=== PATIENT | female | born 1980 | race Caucasian/White ===

== ENCOUNTER 2017-05-18 18:03 | Emergency (ER) | payer BC ==
[~2017-05-18] VITALS: Ht 165.1 cm; Wt 96.7 kg
[~2017-05-18 18:03] MED LIST: IBUP-232 PO; PEXE20TA PO; ROBA750T PO
[2017-05-18] MEDS ORDERED: SODIUM CHLORIDE 0.9% FLUSH 10 ML FLUSH IVF PRN (18:15)
[2017-05-18] MEDS ORDERED: SODIUM CHLOR 0.9% 1000 ML INJ 1,000 ML IV ONE (18:15)
--- NOTE | 2017-05-18 18:20 | PD ---
HPI Chief Complaint: Cardiac Complaint Time Seen by Provider: 18:07 Travel History International Travel<30 days: No Contact w/Intl Traveler<30days: No History of Present Illness HPI This is a 37-year-old female who presents to the emergency department with chest tightness that started about 3 hours ago while she was working. 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 She says it continued for about 2 hours to the point where she decided to come to the emergency department. Her chest pain is mild, nonradiating, with no associated shortness of breath, nausea or diaphoresis. She says of note 5 days ago she started to take Wellbutrin which is a new medicine for her. She says she doesn't feel anxious. She denies any recent travel, she is not on OCPs, she has no history of diabetes, hypertension or hyperlipidemia. She does not smoke or take illicit drugs. Her father just had a heart attack and he is in his 60s. PFSH Past Medical History Blood Disorders: No Anxiety: Yes Past Surgical History Other Surgery: Yes (NASAL) Social History Alcohol Use: Yes Tobacco Use: No Substance Use: No Allergies-Medications (Allergen,Severity, Reaction): Coded Allergies: codeine (Unverified Allergy, Severe, 04/30/17) PT STATES SHE CAN TAKE CODEINE WITHOUT ANY PROBLEMS. penicillin G (Unverified Allergy, Severe, 04/30/17) PT STATES SHE CAN TAKE PENICILLIN WITHOUT ANY PROBLEMS. Reported Meds & Prescriptions Reported Meds & Active Scripts Active Robaxin (Methocarbamol) 750 Mg Tab 750 Mg PO Q6HR Ibuprofen 600 Mg Tab 600 Mg PO Q6H PRN Reported Pexeva (Paroxetine Mesylate) 20 Mg Tab 20 Mg PO DAILY Review of Systems Except as stated in HPI: all other systems reviewed are Neg Physical Exam Narrative GENERAL:Well appearing, no acute distress SKIN: Focused skin assessment warm and dry. HEAD: Atraumatic. Normocephalic. EYES: Pupils equal and round. No injection or drainage. ENT: Moist mucous membranes NECK: Trachea midline. CARDIOVASCULAR: Tachycardic. No murmur appreciated. RESPIRATORY: Clear to auscultation. Breath sounds equal bilaterally. GASTROINTESTINAL: Abdomen soft, non-tender, nondistended. MUSCULOSKELETAL: No obvious deformities. NEUROLOGICAL: Awake and alert. No obvious cranial nerve deficits. Moving all extremities. PSYCHIATRIC: Appropriate mood and affect; insight and judgment normal. Data Data Last Documented VS Vital Signs Date Time Temp Pulse Resp B/P (MAP) Pulse Ox O2 Delivery O2 Flow Rate FiO2 05/18/17 18:32 98.6 90 17 141/74 (96) 97 05/18/17 18:30 Room Air Orders Orders Electrocardiogram (05/18/17 18:12) Complete Blood Count With Diff (05/18/17 18:12) Comprehensive Metabolic Panel (05/18/17 18:12) D-Dimer (05/18/17 18:12) Troponin I (05/18/17 18:12) Chest, Single Ap (05/18/17 18:12) Ecg Monitoring (05/18/17 18:12) Iv Access Insert/Monitor (05/18/17 18:12) Oximetry (05/18/17 18:12) Oxygen Administration (05/18/17 18:12) Sodium Chloride 0.9% Flush (Ns Flush) (05/18/17 18:15) Sodium Chlor 0.9% 1000 Ml Inj (Ns 1000 M (05/18/17 18:15) Thyroid Stimulating Hormone (05/18/17 18:12) Ed Urine Pregnancytest Poc (05/18/17 18:12) MDM Medical Decision Making Medical Screen Exam Complete: Yes Emergency Medical Condition: Yes Interpretation(s) EKG: nsr, normal ST segments Differential Diagnosis Medication side effect, hyperthyroidism, pulmonary embolism, dehydration, arrhythmia Narrative Course This is a 37 year old female who presents to the emergency department with tachycardia and chest tightness. She says it works for her is anywhere from the 120s to 130s. She just started Wellbutrin earlier this week. I suspect this is the etiology of her symptoms. Given she's having chest pain I think it' s reasonable to check some blood work including a d-dimer as she is tachycardic here and is reporting chest discomfort. If this is all reassuring, patient can be discharged home and should be counseled to discontinue Wellbutrin. Maritza Aranda MD May 18, 2017 18:20
--- NOTE | 2017-05-18 18:27 | RADRPT ---
EXAM DATE/TIME: 05/18/2017 18:21 [facility] COMPARISON: No previous studies available for comparison. INDICATIONS : Chest pain. MEDICAL HISTORY : None. SURGICAL HISTORY : None. ENCOUNTER: Initial ACUITY: 1 day PAIN SCORE: 3/10 LOCATION: chest center FINDINGS: A single view of the chest demonstrates the lungs to be symmetrically aerated without evidence of mas s, infiltrate or effusion. The cardiomediastinal contours are unremarkable. Osseous structures are intact. CONCLUSION: No acute disease. Mahad Cornejo MD on May 18, 2017 at 18:25 Board Certified Radiologist. This report was verified electronically.
[2017-05-18 18:30] VITALS: O2SAT 95
[2017-05-18 18:32] VITALS: BP 141/74; PULSE 90; RESP 17; TEMP 98.6; O2SAT 97
[2017-05-18] MEDS ORDERED: HYDR-3583 PO (18:40)
[2017-05-18] MEDS ORDERED: BUPR150XL PO (18:40)
[2017-05-18 19:10] VITALS: BP 140/72; PULSE 95; RESP 16; O2SAT 100
[2017-05-18 19:19] LABS: AUTOMATED NEUTROPHIL # 3.3 TH/MM3 (1.8-7.7); BASOPHIL # 0.1 TH/MM3 (0-0.2); BASOPHIL % 1.2 % (0.0-2.0); EOSINOPHIL # 0.1 TH/MM3 (0-0.4); EOSINOPHIL % 2.6 % (0.0-4.0); HEMATOCRIT 39.9 % (35.0-46.0); HEMO FLAGS DIFF FINAL; LYMPH % 30.1 % (9.0-44.0); LYMPHOCYTE # 1.6 TH/MM3 (1.0-4.8); MEAN CELL VOLUME 91.2 FL (80.0-100.0); MEAN CORPUSCULAR HEMOGLOBIN 31.3 PG (27.0-34.0); MEAN CORPUSCULAR HGB CONC 34.3 % (32.0-36.0); NEUT % 60.1 % (16.0-70.0); PLATELET COUNT 236 TH/MM3 (150-450); RED BLOOD COUNT 4.38 MIL/MM3 (4.00-5.30); RED CELL DISTRIBUTION WIDTH 12.2 % (11.6-17.2); WHITE BLOOD COUNT 5.4 TH/MM3 (4.0-11.0)
[2017-05-18 19:26] LABS: CHLORIDE 105 MEQ/L (98-107); POTASSIUM 3.9 MEQ/L (3.5-5.1); SODIUM (NA) 139 MEQ/L (136-145)
[2017-05-18 19:29] LABS: ANION GAP 6 MEQ/L (5-15); BICARBONATE 28.2 MEQ/L (21.0-32.0); BLOOD UREA NITROGEN 11 MG/DL (7-18)
[2017-05-18 19:32] LABS: ALT (GPT) 18 U/L (10-53); AST (GOT) 15 U/L (15-37); GLOMERULAR FILTRATION RATE 64 ML/MIN (>89)
[2017-05-18 19:34] LABS: TOTAL BILIRUBIN ADULT 0.2 MG/DL (0.2-1.0)
[2017-05-18 19:35] LABS: ALKALINE PHOSPHATASE 72 U/L (45-117)
--- NOTE | 2017-05-18 20:03 | PD ---
Physical Exam Time Seen by Provider: 19:[address] Aranda left this patient with me to check the laboratory and make a disposition, likely discharge. Data Data Last Documented VS Vital Signs Date Time Temp Pulse Resp B/P (MAP) Pulse Ox O2 Delivery O2 Flow Rate FiO2 05/18/17 18:32 98.6 90 17 141/74 (96) 97 05/18/17 18:30 Room Air Orders Orders Electrocardiogram (05/18/17 18:12) Complete Blood Count With Diff (05/18/17 18:12) Comprehensive Metabolic Panel (05/18/17 18:12) D-Dimer (05/18/17 18:12) Troponin I (05/18/17 18:12) Chest, Single Ap (05/18/17 18:12) Ecg Monitoring (05/18/17 18:12) Iv Access Insert/Monitor (05/18/17 18:12) Oximetry (05/18/17 18:12) Oxygen Administration (05/18/17 18:12) Sodium Chloride 0.9% Flush (Ns Flush) (05/18/17 18:15) Sodium Chlor 0.9% 1000 Ml Inj (Ns 1000 M (05/18/17 18:15) Thyroid Stimulating Hormone (05/18/17 18:12) Ed Urine Pregnancytest Poc (05/18/17 18:12) Labs Laboratory Tests Test 05/18/17 19:10 White Blood Count 5.4 TH/MM3 Red Blood Count 4.38 MIL/MM3 Hemoglobin 13.7 GM/DL Hematocrit 39.9 % Mean Corpuscular Volume 91.2 FL Mean Corpuscular Hemoglobin 31.3 PG Mean Corpuscular Hemoglobin Concent 34.3 % Red Cell Distribution Width 12.2 % Platelet Count 236 TH/MM3 Mean Platelet Volume 8.8 FL Neutrophils (%) (Auto) 60.1 % Lymphocytes (%) (Auto) 30.1 % Monocytes (%) (Auto) 6.0 % Eosinophils (%) (Auto) 2.6 % Basophils (%) (Auto) 1.2 % Neutrophils # (Auto) 3.3 TH/MM3 Lymphocytes # (Auto) 1.6 TH/MM3 Monocytes # (Auto) 0.3 TH/MM3 Eosinophils # (Auto) 0.1 TH/MM3 Basophils # (Auto) 0.1 TH/MM3 CBC Comment DIFF FINAL Differential Comment D-Dimer Quantitative (PE/DVT) 0.51 MG/L FEU Blood Urea Nitrogen 11 MG/DL Creatinine 0.98 MG/DL Random Glucose 81 MG/DL Total Protein 7.3 GM/DL Albumin 3.6 GM/DL Calcium Level 8.8 MG/DL Alkaline Phosphatase 72 U/L Aspartate Amino Transf (AST/SGOT) 15 U/L Alanine Aminotransferase (ALT/SGPT) 18 U/L Total Bilirubin 0.2 MG/DL Sodium Level 139 MEQ/L Potassium Level 3.9 MEQ/L Chloride Level 105 MEQ/L Carbon Dioxide Level 28.2 MEQ/L Anion Gap 6 MEQ/L Estimat Glomerular Filtration Rate 64 ML/MIN Troponin I LESS THAN 0.02 NG/ML Thyroid Stimulating Hormone 3rd Gen 0.629 uIU/ML [facility] Medical Record Reviewed: Yes Supervised Visit with MARCO: Yes Interpretation(s) The chest x-ray is normal and the EKG is normal with normal sinus rhythm rate of 90. The CBC is normal. The complete metabolic profile shows a GFR of 64 but is otherwise normal. The TSH is normal and the troponin I is normal. The d -dimer is 0.51. Differential Diagnosis Atypical chest pain, acute coronary syndrome-highly unlikely, Wellbutrin side effect, anxiety, electrolyte disorder, anemia, pulmonary embolus-extremely unlikely Narrative Course The patient appears to have atypical chest pain. The tachycardia may be from the Wellbutrin as a side effect but anxiety may also play a part. At this time the patient's heart rate is in the upper 80s and a sinus rhythm. The rhythm has always been sinus. The patient can discontinue the Wellbutrin of tachycardia becomes a problem. At this time her heart rate is normal sinus rhythm and she may ultimately tolerate the Wellbutrin. She should follow-up with her physician about this. The patient does not have shortness of breath and at this time does not have tachycardia. Her chest pain is not characteristic of pulmonary embolus. She does not have hemoptysis and she does not have fever. Pulmonary embolus is extremely unlikely. I discussed the patient about doing a CTA to rule out pulmonary embolus in either she nor I think this is necessary. Impression: Atypical chest pain, Wellbutrin side effect Diagnosis Primary Impression: Atypical chest pain Additional Impression: Medication side effect Additional Instruction: As we discussed, if you have increased heart rate and shortness of breath, fever or coughing up bloody need to return to the emergency department for reevaluation. Otherwise follow-up with your primary care physician. Med/Other Pt SpecificInfo: No Change to Meds Disposition: 01 DISCHARGE HOME Condition: Stable Jaspal Hedrick MD May 18, 2017 20:03
[2017-05-18 20:25] VITALS: BP 134/71
== END 2017-05-18 20:27 | disposition home or self-care (01) ==
LOC: PHED 18:03
DX: R07.89 Other chest pain (principal); T50.995A Adverse effect of other drugs, medicaments and biological substances, initial encounter; R00.0 Tachycardia, unspecified; Z86.59 Personal history of other mental and behavioral disorders
CPT/HCPCS: 71010; 80053; 84443; 84484; 84703; 85025; 85379